=== PATIENT | female | born 1965 | race Caucasian/White ===

== ENCOUNTER → 2016-07-12 | Outpatient (CLI) | payer OTHER | LOC: FIMAGING 13:25 | DX: Z12.31 Encounter for screening mammogram for malignant neoplasm of breast (principal); Z80.3 Family history of malignant neoplasm of breast | CPT/HCPCS: G0202 ==

== ENCOUNTER → 2016-07-16 | Outpatient (CLI) | payer OTHER | LOC: FIMAGING 12:56 | PROVIDERS: ATTEND Internal Medicine Hematology & Oncology | DX: Z12.39 Encounter for other screening for malignant neoplasm of breast (principal); N63 Unspecified lump in breast ==

== ENCOUNTER → 2016-07-23 | Outpatient (CLI) | payer OTHER | LOC: FIMAGING 10:12 | PROVIDERS: ATTEND Internal Medicine Hematology & Oncology | DX: Z03.89 Encounter for observation for other suspected diseases and conditions ruled out (principal) ==

== ENCOUNTER → 2017-04-23 | Outpatient (CLI) | payer OTHER | LOC: FIMAGING 12:22 | PROVIDERS: ATTEND Internal Medicine | DX: Z13.820 Encounter for screening for osteoporosis (principal); M85.88 Other specified disorders of bone density and structure, other site ==

== ENCOUNTER → 2017-07-20 | Outpatient (CLI) | payer OTHER | LOC: FIMAGING 14:10 | PROVIDERS: ATTEND Internal Medicine Hematology & Oncology | DX: Z12.31 Encounter for screening mammogram for malignant neoplasm of breast (principal); Z80.3 Family history of malignant neoplasm of breast ==

== ENCOUNTER → 2017-10-25 | Outpatient (CLI) | payer OTHER | LOC: FIMAGING 08:39 | PROVIDERS: ATTEND Internal Medicine | DX: R74.8 Abnormal levels of other serum enzymes (principal); R93.421 Abnormal radiologic findings on diagnostic imaging of right kidney ==

== ENCOUNTER 2017-11-04 20:32 | Observation (INO) | payer OTHER ==
[2017-11-04] MEDS ORDERED: NS 1,000 ML IV ONE (21:14)
--- NOTE | 2017-11-04 21:20 | EDPHY ---
H & P Stated Complaint: Fever and chills, nausea and ABD pain since liver biposly 3 days ago. 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 She underwent a liver biopsy 3 days ago. The next morning she had significant pain at the region and presented to a [place] where she had a CT scan done there revealed some bleeding. She was hypotensive 90 systolic and resuscitated with IV fluids. She felt much better after fentanyl and fluids and went home. She states that she felt well on Tuesday and other than having mild pain controlled by Xanax and Tylenol. Today however pain increased and she developed a fever T-max of 103 degrees at home. Also rigors. No vomiting or diarrhea. REVIEW OF SYSTEMS: Constitutional: denies: chills, fever, recent illness, recent injury EENTM: denies: blurred vision, double vision, nose congestion Respiratory: denies: cough, shortness of breath Cardiac: denies: chest pain, irregular heart rate, lightheadedness, palpitations Gastrointestinal/Abdominal: See HPI Genitourinary: denies: dysuria, frequency, hematuria, pain Musculoskeletal: denies: joint pain, muscle pain Skin: denies: lesions, rash, jaundice, bruising Neurological: denies: headache, numbness, paresthesia, tingling, dizziness, weakness Hematologic/Lymphatic: denies: blood clots, easy bleeding, easy bruising Immunologic/allergic: denies: HIV/AIDS, transplant EXAM: GENERAL: Well-appearing, well-nourished and in no acute distress. HEAD: Atraumatic, normocephalic. EYES: Pupils equal round and reactive to light, extraocular movements intact, sclera anicteric, conjunctiva are normal. ENT: TMs normal, nares patent, oropharynx clear without exudates. Moist mucous membranes. NECK: Normal range of motion, supple without lymphadenopathy or JVD. LUNGS: Breath sounds clear to auscultation bilaterally and equal. No wheezes rales or rhonchi. HEART: Regular rate and rhythm without murmurs, rubs or gallops. ABDOMEN: Right upper quadrant tenderness, no erythema or swelling. BACK: No CVA tenderness, no spinal tenderness, step-offs or deformities EXTREMITIES: Normal range of motion, no pitting or edema. No clubbing or cyanosis. NEUROLOGICAL: Cranial nerves II through XII grossly intact. Normal speech, normal gait. 5/5 strength, normal movement in all extremities, normal sensation PSYCH: Normal mood, normal affect. SKIN: Warm, dry, normal turgor, no visible rashes or lesions. Source: Patient, Family, Old records Exam Limitations: No limitations - Personal History Current Tetanus/Diphtheria Vaccine: Yes Current Tetanus Diphtheria and Acellular Pertussis (TDAP): Yes - Medical/Surgical History Hx Asthma: Yes Hx Chronic Respiratory Disease: No Hx Diabetes: No Hx Cardiac Disease: No Hx Renal Disease: No Hx Cirrhosis: No Hx Alcoholism: No Hx HIV/AIDS: No Hx Splenectomy or Spleen Trauma: No Other PMH: Liver biopsy, colon CA - Family History Significant Family History: No pertinent family hx - Social History Smoking Status: Never smoked Alcohol Use: Sober Constitutional: Initial Vital Signs Temperature (C) 37.9 C 11/04/17 20:38 Heart Rate 109 H 11/04/17 20:38 Respiratory Rate 17 11/04/17 20:38 Blood Pressure 144/73 H 11/04/17 20:38 O2 Sat (%) 98 11/04/17 20:38 O2 Delivery Mode Room Air Allergies/Adverse Reactions: No Known Allergies Allergy (Verified 10/27/17 13:48) Home Medications: Medication Instructions Recorded ALPRAZolam [Xanax 0.5 MG (*)] 0.5 mg PO TID PRN 11/05/17 Docusate Sodium [Colace 100 MG (*)] 100 mg PO BID PRN 11/05/17 Magnesium Oxide [Mag-Oxide] 400 mg PO BID 11/05/17 Progesterone, Micronized 200 mg PO HS 11/05/17 [Progesterone] Sennosides [Senna Lax] 8.6 mg PO DAILY PRN 11/05/17 oxyCODONE/APAP 5/325 [Percocet 1 tab PO Q4-6PRN PRN 11/05/17 5/325 (*)] Medical Decision Making ED Course/Re-evaluation: I spoke with Dr. Reyna. He recommended repeat CT scan. Will also obtain lab work and cultures. 11:00 p.m. I spoke with Dr. Brown who will admit for pain control. He would defer antibiotics to on Oncology recommendation her fever is now up to 38.2. 11:00 p.m. I spoke with Dr. Mendes who would like to withhold antibiotics at this point and follow-up. Differential Diagnosis: Partial list of the Differential diagnosis considered include but were not limited to; abscess, hematoma, tumor fever and although unlikely based on the history and physical exam, I also considered sepsis dissection, pancreatitis. - Data Points Laboratory Results: Laboratory Results 11/04/17 21:15 11/04/17 21:15 Medications Given: Discontinued Medications Acetaminophen (Tylenol) 650 mg PO Q4HRS PRN PRN Reason: Pain, Mild/Fever, Can Take PO Stop: 05/03/18 22:54 Last Admin: 11/04/17 23:16 Dose: 650 mg Hydromorphone HCl (Dilaudid) 0.5 mg IVP EDNOW ONE Stop: 11/04/17 21:44 Last Admin: 11/04/17 21:46 Dose: 0.5 mg Sodium Chloride (Ns) 1,000 mls @ 0 mls/hr IV EDNOW ONE; Wide Open PRN Reason: Protocol Stop: 11/04/17 21:15 Last Admin: 11/04/17 21:30 Dose: 1,000 mls Ondansetron HCl (Zofran Odt) 4 mg PO Q4HRS PRN PRN Reason: Nausea/Vomiting, Use 1st Stop: 05/03/18 22:54 Last Admin: 11/05/17 01:35 Dose: 4 mg Oxycodone HCl (Oxycodone Ir) 5 - 10 mg PO Q3HRS PRN PRN Reason: Pain, Severe Able to Take PO Stop: 11/14/17 22:54 Last Admin: 11/05/17 11:50 Dose: 10 mg Departure - Departure Disposition: Home, Routine, Self-Care Clinical Impression: Fever and chills, Metastatic colon cancer to liver Condition: Fair
[2017-11-04 21:30] LABS: PLATELET COUNT 420 10^3/uL (150-400)
[2017-11-04 21:43] LABS: INR 1.05 (0.83-1.16); PROTIME(PATIENT) 13.9 SEC (12.0-15.0)
[2017-11-04] MEDS ORDERED: HYDROmorphONE/DILAUDID 2 MG/ML INJ IVP ONE (21:43)
[2017-11-04] MEDS ORDERED: IOPAMIDOL (ISOVUE-300) 100 ML BTL ONE (21:48)
[2017-11-04] MEDS ORDERED: ONDANSETRON DISINTEGRATING 4 MG TAB PO PRN (22:55)
[2017-11-04] MEDS ORDERED: ACETAMINOPHEN 325 MG TAB PO PRN (22:55)
[2017-11-04] MEDS ORDERED: ONDANSETRON 4 MG/2 ML VIAL IVP PRN (22:55)
[2017-11-05] MEDS: oxyCODONE IR 5 MG TAB PO PRN ×3 (01:36→11:50)
--- NOTE | 2017-11-05 02:30 | PDGENHP ---
History and Physical - Chief Complaint Abdominal pain, fever - History of Present Illness 52 yo F w/ hx of colorectal CA treated w/ colectomy now w/ liver recurrence presents with RUQ pain after recent liver biopsy. Patient has had pain at the site of her biopsy since Tuesday. She was seen at [facility] for this where she was treated conservatively and discharged home. Her pain has actually improved somewhat but today she developed a fever. At this point she decided to go the ED. She denies all infectious ROS to me aside from the aforementioned RUQ pain. CT scan performed in the ED shows perihepatic fluid w/ only mild increase from prior. CT read states there is no significant hematoma or abscess. Case discussed with ED physician Dr. Marie, previous records reviewed. History Information - Allergies/Home Medication List Allergies/Adverse Reactions: No Known Allergies Allergy (Verified 10/27/17 13:48) Home Medications: Progesterone 10/27/17 [Last Taken 10/31/17] Xanax PO PRN 10/27/17 [Last Taken 10/30/17] Motrin (*) 11/01/17 [Last Taken 10/30/17] I have personally reviewed and updated: family history, medical history - Past Medical History cancer - Surgical History Reports: colectomy - Family History Positive for: cancer - Social History Smoking Status: Never smoked Alcohol Use: Sober Review of Systems Review of Systems: ROS: 10pt was reviewed & negative except for what was stated in HPI & below Physical Exam Physical Exam: Temp Pulse Resp BP Pulse Ox 36.9 C 104 H 16 129/69 H 93 11/05/17 01:45 11/05/17 00:20 11/05/17 00:20 11/05/17 00:20 11/05/17 00:20 Constitutional: no apparent distress, not in pain Eyes: PERRL, EOMI Ears, Nose, Mouth, Throat: moist mucous membranes, no oral mucosal ulcers Cardiovascular: regular rate and rhythym, no murmur, rub, or gallop Respiratory: no respiratory distress Gastrointestinal: normoactive bowel sounds, tenderness (Epi-gastric), No guarding, No rebound, No distension Skin: warm, normal color Musculoskeletal: full muscle strength, no muscle tenderness Neurologic: AAOx3, CN II-XII Intact Psychiatric: interacting appropriately, not anxious Lab Data & Imaging Review 11/04/17 21:15 11/04/17 21:15 WBC 8.56 10^3/uL (3.80-9.50) 11/04/17 21:15 RBC 4.02 10^6/uL (4.18-5.33) L 11/04/17 21:15 Hgb 12.2 g/dL (12.6-16.3) L 11/04/17 21:15 Hct 36.3 % (38.0-47.0) L 11/04/17 21:15 MCV 90.3 fL (81.5-99.8) 11/04/17 21:15 MCH 30.3 pg (27.9-34.1) 11/04/17 21:15 MCHC 33.6 g/dL (32.4-36.7) 11/04/17 21:15 RDW 12.8 % (11.5-15.2) 11/04/17 21:15 Plt Count 420 10^3/uL (150-400) H 11/04/17 21:15 MPV 8.2 fL (8.7-11.7) L 11/04/17 21:15 Neut % (Auto) 80.1 % (39.3-74.2) H 11/04/17 21:15 Lymph % (Auto) 9.9 % (15.0-45.0) L 11/04/17 21:15 [facility] % (Auto) 8.4 % (4.5-13.0) 11/04/17 21:15 Eos % (Auto) 0.7 % (0.6-7.6) 11/04/17 21:15 Baso % (Auto) 0.4 % (0.3-1.7) 11/04/17 21:15 Nucleat RBC Rel Count 0.0 % (0.0-0.2) 11/04/17 21:15 Absolute Neuts (auto) 6.86 10^3/uL (1.70-6.50) H 11/04/17 21:15 Absolute Lymphs (auto) 0.85 10^3/uL (1.00-3.00) L 11/04/17 21:15 Absolute Monos (auto) 0.72 10^3/uL (0.30-0.80) 11/04/17 21:15 Absolute Eos (auto) 0.06 10^3/uL (0.03-0.40) 11/04/17 21:15 Absolute Basos (auto) 0.03 10^3/uL (0.02-0.10) 11/04/17 21:15 Absolute Nucleated RBC 0.00 10^3/uL (0-0.01) 11/04/17 21:15 Immature Gran % 0.5 % (0.0-1.1) 11/04/17 21:15 Immature Gran # 0.04 10^3/uL (0.00-0.10) 11/04/17 21:15 PT 13.9 SEC (12.0-15.0) 11/04/17 21:15 INR 1.05 (0.83-1.16) 11/04/17 21:15 APTT 30.5 SEC (23.0-38.0) 11/04/17 21:15 VBG Lactic Acid 0.8 mmol/L (0.7-2.1) 11/04/17 21:15 Sodium 131 mEq/L (135-145) L 11/04/17 21:15 Potassium 3.5 mEq/L (3.3-5.0) 11/04/17 21:15 Chloride 98 mEq/L (97-110) 11/04/17 21:15 Carbon Dioxide 25 mEq/l (22-31) 11/04/17 21:15 Anion Gap 8 mEq/L (8-16) 11/04/17 21:15 BUN 11 mg/dL (7-23) 11/04/17 21:15 Creatinine 0.7 mg/dL (0.6-1.0) 11/04/17 21:15 Estimated GFR > 60 11/04/17 21:15 Glucose 128 mg/dL (70-100) H 11/04/17 21:15 Calcium 9.1 mg/dL (8.5-10.4) 11/04/17 21:15 Total Bilirubin 0.5 mg/dL (0.1-1.4) 11/04/17 21:15 Conjugated Bilirubin 0.3 mg/dL (0.0-0.5) 11/04/17 21:15 Unconjugated Bilirubin 0.2 mg/dL (0.0-1.1) 11/04/17 21:15 AST 170 IU/L (14-46) H 11/04/17 21:15 ALT 63 IU/L (9-52) H 11/04/17 21:15 Alkaline Phosphatase 281 IU/L (38-126) H 11/04/17 21:15 Total Protein 7.2 g/dL (6.3-8.2) 11/04/17 21:15 Albumin 3.9 g/dL (3.5-5.0) 11/04/17 21:15 Lipase 165 IU/L (23-300) 11/04/17 21:15 Urine Color PALE YELLOW 11/04/17 22:45 Urine Appearance CLEAR 11/04/17 22:45 Urine pH 6.0 (5.0-7.5) 11/04/17 22:45 Ur Specific [place] 1.013 (1.002-1.030) 11/04/17 22:45 Urine Protein NEGATIVE (NEGATIVE) 11/04/17 22:45 Urine Ketones NEGATIVE (NEGATIVE) 11/04/17 22:45 Urine Blood NEGATIVE (NEGATIVE) 11/04/17 22:45 Urine Nitrate NEGATIVE (NEGATIVE) 11/04/17 22:45 Urine Bilirubin NEGATIVE (NEGATIVE) 11/04/17 22:45 Urine Urobilinogen NEGATIVE EU (0.2-1.0) 11/04/17 22:45 Ur Leukocyte Esterase TRACE (NEGATIVE) H 11/04/17 22:45 Urine RBC 1-3 /hpf (0-3) 11/04/17 22:45 Urine WBC 1-3 /hpf (0-3) 11/04/17 22:45 Ur Epithelial Cells TRACE /lpf (NONE-1+) 11/04/17 22:45 Urine Bacteria TRACE /hpf (NONE SEEN) H 11/04/17 22:45 Urine Glucose NEGATIVE (NEGATIVE) 11/04/17 22:45 Imaging Review: Imaging Impressions Abdomen CT 11/04/17 21:14 Impression: 1. Minimal increase in attenuation and size of a right perihepatic fluid collection with trace new free fluid in the pelvis, likely related to minimal post biopsy hemorrhage, with no significant hematoma or visible abscess. 2. Small right pleural effusion with basilar atelectasis. 3. Stable large right hepatic mass, almost certainly representing malignancy. 4. Additional findings as above. Findings discussed with AUDIE MARIE 11/04/2017 at 2253. Assessment & Plan Assessment: 52 yo F w/ recurrent colorectal CA presents with RUQ pain and fever 3 days after liver biopsy. Plan: 1. Fever - Unclear etiology, could possibly be related to perihepatic fluid collection noted on CT but does not clearly appear infected on CT imaging. WBC and lactate are normal. UA without evidence of infection. She is saturating well on RA with no respiratory symptoms. Tumor fever is another possibility. - Admit for observation - Observe off of antibiotics - Procalcitonin and blood cultures pending - Oncology consulted, appreciate assistance 2. Recurrent, metastatic colorectal CA - With newly discovered metastasis to the liver. She was previously treated with partial colectomy only. - Oncology consulted 3. Abnormal LFTs - Suspect related to recent biopsy and known malignancy. - Trend CMP Diet - Regular Code - Full Ppx - SCDs Dispo - Admit under observation status
[2017-11-05 05:02] LABS: PLATELET COUNT 422 10^3/uL (150-400)
[2017-11-05 12:23] VITALS: BP 129/67
--- NOTE | 2017-11-05 13:44 | GDS ---
[f rep st] DISCHARGE SUMMARY DISCHARGE DIAGNOSES: History of colorectal cancer, now with recurrent liver mass. Right upper quadrant pain after recent liver biopsy. HISTORY OF PRESENT ILLNESS: A 52-year-old female with history of colorectal cancer, status post colectomy, now with a recurrent liver mass, presenting with right upper quadrant pain. Underwent liver biopsy 11/01/2017 and has had pain since that time. She went to [facility], where she was treated conservatively and discharged home. Her pain actually improved but then developed a fever at home. She presented to the ED. Denies cough, nausea, vomiting, diarrhea, or dysuria. CT scan in the ED showed perihepatic fluid. No significant hematoma or abscess. HOSPITAL COURSE BY PROBLEM: 1. Fever: Suspect this is an acute reaction from recent procedure. CT did not show abscess or significant hematoma. H and H was stable. She did not have leukocytosis. I discussed case with Dr. Mendes, and we both agree to monitor off antibiotics. UA showed trace leukocyte esterase but asymptomatic. 2. Acute pain: Again, no concern for hematoma or retroperitoneal hemorrhage. Recommend scheduling Percocet every 6 hours for the next couple days and then decreasing as tolerated. Can use Advil intermittently. 3. Headache: Likely tension with muscle tightness in neck. Recommend massage and heating pad. 4. History of colorectal cancer: Treated with colectomy, now with a recurrent liver mass. Plan for resection at [place] this week. DISPOSITION: The patient is stable for discharge home. MEDICATIONS: Schedule Percocet. PHYSICAL EXAMINATION: VITAL SIGNS: Temperature is 38. Blood pressure 129/67. Heart rate in the low 100s. Respirations 12. 93% on room air. GENERAL: She is well appearing, sitting up in bed, in no acute distress. HEENT: PERRLA. Moist mucous membranes. CV: Regular rate and rhythm. LUNGS: Clear. ABDOMEN: Right upper quadrant tenderness at site of biopsy. No flank hematoma. MUSCULOSKELETAL: No tenderness over back. NEUROLOGIC: 2 through 12 intact. PSYCHIATRIC: Alert and oriented x3. Time spent on discharge greater than 30 minutes. Bedside counseling patient on followup plan, medications, and return precautions. /[id number]/MODL MTDD
== END 2017-11-05 12:59 | disposition home or self-care (01) ==
LOC: F1N 23:37
PROVIDERS: ADMIT Student in an Organized Health Care Education/Training Program; ATTEND Student in an Organized Health Care Education/Training Program
DX: C22.9 Malignant neoplasm of liver, not specified as primary or secondary (principal); Z85.038 Personal history of other malignant neoplasm of large intestine
CPT/HCPCS: 74177; 96361; 96374; 99285; G0378; J1170; Q9967

== ENCOUNTER 2018-01-06 13:09 | Day surgery (SDC) | payer OTHER ==
[2018-01-06] MEDS ORDERED: LIDOCAINE 1% 300 MG/30 ML SDV ONE ×2 (13:33→14:11)
[2018-01-06] MEDS ORDERED: BUPIVACAINE 0.25% 30 ML SDV ONE ×2 (13:33→14:11)
[2018-01-06] MEDS ORDERED: HEPARIN 1000 UNIT/1 ML MDV ONE (13:33)
[2018-01-06] MEDS ORDERED: EPINEPHrine 1 MG/ML INJ ONE (13:34)
[2018-01-06] MEDS ORDERED: ceFAZolin 2 GM/DEXTROSE 100 ML IV ONE (13:39)
[2018-01-06] MEDS ORDERED: LR 1,000 ML IV ONE ×2 (13:40→13:47)
[2018-01-06] MEDS ORDERED: LIDOCAINE 1% 2 ML INJ ID PRN (13:47)
--- NOTE | 2018-01-06 13:54 | POSTANESTH ---
Post Anesthetic Evaluation Cardiovascular Status: Normal, Stable Respiratory Status: Normal, Stable Level of Consciousness/Mental Status: Can Participate in Eval, Alert and Oriented Pain Control: Adequate, Prn Tx Ordered Nausea/Vomiting Control: Adequate, Prn Tx Ordered Complications Possibly Related to Anesthesia: None Noted
--- NOTE | 2018-01-06 13:57 | PDANEPAE ---
ANE History of Present Illness 52 yo female with metastatic colon cancer s/p liver resection now for port placement. ANE Past Medical History - Cardiovascular History Hx Hypertension: No Hx Arrhythmias: No Hx Chest Pain: No Hx Coronary Artery / Peripheral Vascular Disease: No Hx CHF / Valvular Disease: No Hx Palpitations: No - Pulmonary History Hx COPD: No Hx Asthma/Reactive Airway Disease: No Hx Recent Upper Respiratory Infection: No Hx Oxygen in Use at Home: No Hx Sleep Apnea: No Sleep Apnea Screening Result - Last Documented: Negative - Neurologic History Hx Cerebrovascular Accident: No Hx Seizures: No Hx Dementia: No - Endocrine History Hx Diabetes: No Hypothyroid: No Hyperthyroid: No Obesity: no - Renal History Hx Renal Disorders: No - Liver History Hx Hepatic Disorders: Yes Hepatic History Comment: Liver metastasis from colon CA - Neurological & Psychiatric Hx Hx Neurological and Psychiatric Disorders: No - Cancer History Hx Cancer: Yes Cancer History Comment: Colon CA s/p colectomy, now s/p liver resection of met - Congenital Disorder History Hx Congenital Disorders: No - GI History Hx Gastrointestinal Disorders: No - Other Health History Other Health History: ANEMIA SINCE LAST SURG 11/15/2017 - Chronic Pain History Chronic Pain: No - Surgical History Prior Surgeries: 11/2017 LOBECTOMY LIVER. LIVER BX. INCISIONAL HERNIA 2017. Colon resection-2015 ANE Review of Systems Review of systems is: negative Review of Systems: - Exercise capacity METS (RN): 5 METS ANE Patient History - Allergies Allergies/Adverse Reactions: No Known Allergies Allergy (Verified 10/27/17 13:48) - Home Medications Home Medications: ALPRAZolam [Xanax 0.5 MG (*)] 0.5 mg PO TID PRN 11/05/17 [Last Taken 11/04/17 15 :30] Magnesium Oxide [Mag-Oxide] 400 mg PO BID 11/05/17 [Last Taken 01/05/18] Progesterone, Micronized [Progesterone] 200 mg PO HS 11/05/17 [Last Taken ] Herbals/Supplements -Info Only 01/04/18 [Last Taken 01/04/18] Iron 01/04/18 [Last Taken 01/04/18] - NPO status NPO Since - Liquids (Date): 01/06/18 NPO Since - Liquids (Time): 10:00 NPO Since - Solids (Date): 09/27/18 NPO Since - Solids (Time): 21:00 - Anes Hx Anes Hx: no prior problems - Smoking Hx Smoking Status: Never smoked Marijuana use: Yes - Family Anes Hx Family Anes Hx: neg - N/A Family Hx Anesthesia Complications: None ANE Labs/Vital Signs - Vital Signs Vital Signs: reviewed preoperatively; see RN documention for details Height: 172.72 cm Weight: 68.946 kg ANE Physical Exam - Airway Neck exam: FROM Mallampati Score: Class 2 Mouth exam: normal dental/mouth exam - Pulmonary Pulmonary: clear to auscultation - Cardiovascular Cardiovascular: regular rate and rhythym - ASA Status ASA Status: III ANE Anesthesia Plan Anesthesia Plan: GA with mask Total IV Anesthesia: Yes
[2018-01-06] MEDS ORDERED: fentaNYL 100 MCG/2 ML INJ IVP PRN ×2 (14:22→15:51)
[2018-01-06] MEDS ORDERED: METOCLOPRAMIDE 10 MG/2 ML VIAL IVP PRN (14:22)
[2018-01-06] MEDS ORDERED: ALBUTEROL 3 ML DEYVIAL IH PRN ×2 (14:22→15:51)
[2018-01-06] MEDS ORDERED: HYDROCODONE/APAP 5/325 TAB PO PRN (14:22)
[2018-01-06] MEDS ORDERED: LR 500 ML IV PRN ×2 (14:22→15:51)
[2018-01-06] MEDS ORDERED: NALOXONE HCL 0.4 MG/ML INJ IVP PRN ×3 (14:22→15:51)
[2018-01-06] MEDS ORDERED: ACETAMINOPHEN 500 MG TAB PO PRN ×2 (14:22→15:51)
[2018-01-06] MEDS ORDERED: MIDAZOLAM 2 MG/2 ML VIAL IVP ONE (15:01)
[2018-01-06] MEDS ORDERED: fentaNYL 100 MCG/2 ML INJ ONE (15:04)
[2018-01-06] MEDS ORDERED: LIDOCAINE 2% 2 ML INJ ONE (15:04)
[2018-01-06] MEDS ORDERED: PROPOFOL/EMULSION 500 MG/50 ML BOTTLE IV ONE (15:05)
[2018-01-06] MEDS ORDERED: PHENYLEPHRINE HCL 100 MCG/ML SYR ONE (15:33)
[2018-01-06] MEDS ORDERED: ONDANSETRON 4 MG/2 ML VIAL IVP PRN (15:51)
[2018-01-06] MEDS ORDERED: ONDANSETRON DISINTEGRATING 4 MG TAB PO PRN (16:09)
[2018-01-06] MEDS ORDERED: OXYCODONE/APAP 5/325 TAB PO PRN (16:09)
[2018-01-06] MEDS: EPINEPHrine 1 MG/ML INJ ONE ×2 (16:09→16:13)
[2018-01-06] MEDS: HEPARIN 1000 UNIT/1 ML MDV ONE ×2 (16:11→16:15)
--- NOTE | 2018-01-06 16:14 | POSTOPPROG ---
Post Op Note Date of Operation: 01/06/18 Surgeon: Florentino Mendez (, FACS) Anesthesiologist: Janny Guzman DO Anesthesia: Other (Specify) (MAC) Pre-op Diagnosis: stage IV colon CA/phlebosclerosis Procedure: left subclavian venous port placement Findings: uncomplicated placement/CXR pending Inf/Abcess present in the surg proc area at time of surgery?: No EBL: Minimal (10 ml)
[2018-01-06 17:05] VITALS: BP 116/74
--- NOTE | 2018-01-06 17:05 | GOP ---
DATE OF OPERATION: 01/06/2018 SURGEON: Florentino Mendez MD, FACS ANESTHESIA: Monitored anesthesia care. ANESTHESIOLOGIST: Janny Guzman MD PREOPERATIVE DIAGNOSIS: 1. Stage IV colon cancer. 2. Need for venous access for chemotherapy administration. POSTOPERATIVE DIAGNOSIS: 1. Stage IV colon cancer. 2. Need for venous access for chemotherapy administration. PROCEDURE PERFORMED: Placement of left subclavian venous port. FINDINGS: Uncomplicated port placement. Postprocedural chest x-ray pending at time of dictation. ESTIMATED BLOOD LOSS: Less than 10. DESCRIPTION OF PROCEDURE: Procedure after informed consent was obtained, the patient was brought to the operating room and placed under moderate sedation. She was unconscious and not conversant throughout the procedure. Her chest wall was prepped and draped in the usual fashion with both arms tucked and a gel pad between the scapulae. Before proceeding, a time-out and identification of the patient was performed. 1% lidocaine plain was used to infiltrate the left infraclavicular fossa with the table in Trendelenburg position. An 18-gauge thin wall needle was then used to puncture the left subclavian vein on the 1st pass with good venous return noted. A flexible J-wire was introduced and advanced without resistance. Position was confirmed by fluoroscopy. The needle was removed and a reservoir site was selected, infiltrated with a mixture of 0.25% Marcaine and 1% lidocaine, incised transversely, somewhat medial and inferior to the venipuncture site. An 8-Romansh polyurethane catheter was tunneled from the reservoir site to the venipuncture site. The catheter was flushed with dilute heparin solution. A dilator and peel-away catheter were passed over the wire. The wire and dilator were removed and the port catheter was passed through the peel-away catheter, which was then split and removed, leaving the port catheter intravenous. The tip of the catheter was adjusted under fluoroscopy by withdrawal until the tip was at the superior vena cava-right atrial junction. The external portion of the catheter was attached to a locking hub and a reservoir. This was accessed with a noncoring needle and good venous return noted. This was flushed with dilute heparin solution, followed by 2.5 cc of 1000 unit/cc heparin. The reservoir was secured to the pectoralis with interrupted 3-0 Prolene sutures to prevent rotation. Hemostasis appeared secure. The deep subcutaneous tissues were approximated with 3-0 suture. Skin of both incisions was closed with 4-0 Monocryl suture in a subcuticular fashion. Mastisol and Steri-Strips were applied. Needle, sponge, and instrument counts were correct. COMPLICATIONS: None. /[id number]/MODL MTDD
== END 2018-01-06 17:40 | disposition home or self-care (01) ==
LOC: FSGY 13:09
PROVIDERS: ATTEND Surgery
PROC: 02HV33Z Insertion of Infusion Device into Superior Vena Cava, Percutaneous Approach (ICD-10-PCS; principal; 2018-01-06 14:30)
PROC: 0JH60XZ Insertion of Tunneled Vascular Access Device into Chest Subcutaneous Tissue and Fascia, Open Approach (ICD-10-PCS; principal; 2018-01-06 14:30)
PROC: B5171ZZ Fluoroscopy of Left Subclavian Vein using Low Osmolar Contrast (ICD-10-PCS; principal; 2018-01-06 14:30)
DX: C78.7 Secondary malignant neoplasm of liver and intrahepatic bile duct (principal); C19 Malignant neoplasm of rectosigmoid junction; D64.9 Anemia, unspecified
CPT/HCPCS: C1788; J0171; J0690; J1642; J2250; J2370; J2704; J3010

== ENCOUNTER 2018-04-29 13:38 | Emergency (ER) | payer OTHER ==
[2018-04-29] MEDS ORDERED: ACETAMINOPHEN 500 MG TAB PO ONE (14:00)
--- NOTE | 2018-04-29 14:40 | EDPHY ---
H & P Time Seen by Provider: 04/29/18 13:51 HPI/ROS: This patient lost her balance while at the gas station tripping and falling sustaining injury to her left forefoot/midfoot region-proximal 2nd metatarsal area shortly prior to arrival. Incident occurred around noon and she took a oxycodone/Tylenol that she has for headaches from chemotherapy. She reports that the pain in her foot is 3/10 at baseline, 8/10 when she bears weight. She describes it as achy at rest sharp with weight-bearing. She also reports a mild abrasion of the right knee that is only causing minimal discomfort. ROS: Constitutional: No complaints HEENT: No head injury or facial injuries. Neuro: No numbness or tingling. Currently no headache. No midline neck or back pain Pulmonary: No chest wall injury. No shortness of breath Cardiovascular: No complaints GI: No abdominal pain, nausea or vomiting Extremities: No other lacerations or complaints. No other injuries and what is mentioned above. She has no bony pain to the right lower extremity at the site of the abrasion. 7 point review of symptoms is performed and otherwise negative with exception of pertinent positives and negatives listed in HPI and ROS Past Medical/Surgical History: Colon cancer with mets to liver with partial liver resection and subsequent clearance of cancer currently on last few rounds of chemotherapy. Smoking Status: Never smoked Physical Exam: Physical Exam Vital signs are normal. General: No acute distress HEENT: Atraumatic. Eyes: Pupils equal and react to light. Extraocular motions are intact. Lungs: No respiratory distress. Cardiac: Brisk capillary refill is intact throughout. Pulses are 2+ and symmetric in the affected extremity. Skin: She has a superficial abrasion to the right knee with no underlying bony tenderness and no active bleeding. No foreign bodies present. This is partial thickness abrasion 3 x 3 cm in size just inferior to the patella. Extremities: Atraumatic except for the left foot Left foot: Patient has swelling and tenderness at the area of the proximal 2nd metatarsal/midfoot. No 5th metatarsal tenderness, ankle swelling or tenderness , Achilles swelling or tenderness or other abnormal findings. Neuro: Alert and oriented x3 with no sensorimotor deficits to the affected lower extremity. Initial differential diagnosis: Foot fracture, foot sprain, knee abrasion, knee contusion Constitutional: Initial Vital Signs Temperature (C) 36.8 C 04/29/18 13:42 Heart Rate 96 04/29/18 13:42 Respiratory Rate 16 04/29/18 13:42 Blood Pressure 116/72 04/29/18 13:42 O2 Sat (%) 95 04/29/18 13:42 O2 Delivery Mode Room Air Allergies/Adverse Reactions: No Known Allergies Allergy (Verified 04/29/18 13:42) Home Medications: Medication Instructions Recorded Magnesium Oxide [Mag-Oxide] 11/05/17 5fu 04/29/18 Acetaminophen [Tylenol ES 500 mg 04/29/18 (*)] Ativan 04/29/18 Claritin 04/29/18 Oxaliplatin 04/29/18 oxyCODONE/APAP 5/325 [Percocet 04/29/18 5/325 (*)] MDM/Departure - MDM Diagnostics: Three-view foot x-rays: Small dorsal chip fracture at the midfoot on lateral view by my interpretation. Imaging Results: Imaging Impressions Foot X-Ray 04/29/18 13:53 Impression: Potentially a tiny midfoot dorsal chip. Otherwise negative. Imaging: I viewed and interpreted images myself Medications Given: Discontinued Medications Acetaminophen (Tylenol) 500 mg PO EDNOW ONE Stop: 04/29/18 14:01 Last Admin: 04/29/18 14:06 Dose: 500 mg ED Course/Re-evaluation: Counseled this patient regarding her foot fracture. Splinting: Our tech placed the patient in a walker boot according to my instructions. She is neurovascular intact post splint application Wound care: Our tech cleaned her abrasion then applied bacitracin and Tegaderm. Patient will follow up with Orthopedics as an outpatient. I instructed her to use crutches with touchdown weight-bearing in the meantime with analgesics plan of her Percocet and Tylenol. She reports that she has plenty of Percocet at home already and requires no further analgesics at this time. - Depart Disposition: Home, Routine, Self-Care Clinical Impression: Foot fracture, left Qualifiers: Encounter type: initial encounter Fracture type: closed Qualified Code(s): S92.902A - Unspecified fracture of left foot, initial encounter for closed fracture Abrasion of knee, right Qualifiers: Encounter type: initial encounter Qualified Code(s): S80.211A - Abrasion, right knee, initial encounter Condition: Good Instructions: Crutch Instructions (ED), Foot Fracture in Adults (ED), Abrasion (ED) Additional Instructions: Diagnoses: 1. Foot fracture 2. Knee abrasion Plan: We have Tegaderm in place for the next few days then remove, clean abrasion and reapply similar bandage. Repeat process until it is healed Wear a walker boot whenever your up and about for foot fracture. Use crutches with touchdown weight-bearing and to follow up with the orthopedic doctor for further instructions. Call the orthopedic physician on Tuesday to arrange follow-up appointment for sometime within the next 5-7 days Tylenol and/or Percocet as needed for pain control. Return for any significant worsening despite treatment plan Referrals: Willem Campos MD [Primary Care Provider] - As per Instructions Timbo Unger MD [Medical Doctor] - As per Instructions
[2018-04-29 15:09] VITALS: BP 115/72
== END 2018-04-29 15:03 | disposition home or self-care (01) ==
LOC: CED 13:38
DX: S92.902A Unspecified fracture of left foot, initial encounter for closed fracture (principal); S80.211A Abrasion, right knee, initial encounter; W01.0XXA Fall on same level from slipping, tripping and stumbling without subsequent striking against object, initial encounter; Y92.524 Gas station as the place of occurrence of the external cause; Y93.9 Activity, unspecified; Y99.9 Unspecified external cause status
CPT/HCPCS: 73630-PO; 99283-ER; L4386-ER

== ENCOUNTER → 2018-07-20 | Outpatient (CLI) | payer OTHER | LOC: FIMAGING 10:56 | PROVIDERS: ATTEND Internal Medicine Hematology & Oncology | DX: Z12.31 Encounter for screening mammogram for malignant neoplasm of breast (principal); Z80.3 Family history of malignant neoplasm of breast ==